=== PATIENT | female | born 1955 | race Caucasian/White ===

== ENCOUNTER → 2016-08-31 | Outpatient (CLI) | payer OTHER ==
[~2016-08-31] MED LIST: CHOL100018 PO; GUAI1TAB21 PO; MAGN84TA6 PO; MULT-6 PO; OMEP-110 PO; OXYC1TAB7 PO; POTA10TA11 PO
== END | disposition home or self-care (01) ==
LOC: EDSTATUS 11:30 → CFH 11:38
PROVIDERS: ATTEND Family Medicine
DX: Z12.31 Encounter for screening mammogram for malignant neoplasm of breast (principal); M81.0 Age-related osteoporosis without current pathological fracture
CPT/HCPCS: 77080; G0202

== ENCOUNTER 2018-10-15 09:38 | Outpatient (CLI) | payer OTHER ==
[~2018-10-15 09:38] MED LIST changes: +CHOL100012 PO; -CHOL100018 PO
== END 2018-10-15 23:59 | disposition home or self-care (01) ==
LOC: CFH 09:38
PROVIDERS: ATTEND Internal Medicine
DX: M81.0 Age-related osteoporosis without current pathological fracture (principal)
CPT/HCPCS: 77080

== ENCOUNTER 2019-04-05 10:39 | Outpatient (CLI) | payer OTHER | END 2019-04-05 23:59 | disposition home or self-care (01) | LOC: CFH 10:39 | PROVIDERS: ATTEND Internal Medicine | DX: Z12.31 Encounter for screening mammogram for malignant neoplasm of breast (principal) | CPT/HCPCS: 77067 ==

== ENCOUNTER → 2020-04-22 | Outpatient (CLI) | payer OTHER | END | disposition home or self-care (01) | LOC: CFH 09:50 | PROVIDERS: ATTEND Internal Medicine | DX: Z12.31 Encounter for screening mammogram for malignant neoplasm of breast (principal) | CPT/HCPCS: 77067 ==

== ENCOUNTER → 2020-04-24 | Outpatient (CLI) | payer OTHER | END | disposition home or self-care (01) | LOC: CFH 09:11 | PROVIDERS: ATTEND Nurse Practitioner Family | DX: R92.0 Mammographic microcalcification found on diagnostic imaging of breast (principal) | CPT/HCPCS: 77065 ==

== ENCOUNTER 2020-05-27 07:47 | Outpatient (CLI) | payer OTHER ==
[2020-05-27] MEDS ORDERED: LIDOCAINE 1%-EPI 1:100K, 20ML ONE (10:08)
[2020-05-27] MEDS ORDERED: LIDOCAINE 1%, 20ML ONE (10:08)
[2020-05-27] MEDS ORDERED: SODIUM BICARBONATE 4.2%, 5ML ONE (10:08)
== END 2020-05-27 23:59 | disposition home or self-care (01) ==
LOC: CFH 07:47
PROVIDERS: ATTEND Internal Medicine
DX: D24.1 Benign neoplasm of right breast (principal); Z79.899 Other long term (current) drug therapy; Z72.89 Other problems related to lifestyle; Z87.891 Personal history of nicotine dependence
CPT/HCPCS: 19081; 77065; 88305; J3490